=== PATIENT | female | born 1955 | race Caucasian/White ===

== ENCOUNTER 2016-09-28 23:33 | Inpatient (IN) | payer MEDICARE, OTHER ==
[~2016-09-28] VITALS: Ht 160 cm; Wt 64.9 kg
[2016-09-29] VITALS (11 sets, daily range): BP systolic 110–128; RESP 16–20; TEMP 97.4–98.7; Ht 160 cm; Wt 64.9 kg
[2016-09-29] MEDS ORDERED: NITROGLYCERIN 2% OINT 1 INCH PKT TOPICAL ONE (00:25)
[2016-09-29] MEDS ORDERED: ENOXAPARIN 60 MG/0.6 ML SYR SUBQ ONE (00:40)
[2016-09-29] MEDS ORDERED: ENOXAPARIN 80 MG/0.8 ML SYR SUBQ ONE (00:45)
[2016-09-29] MEDS ORDERED: SODIUM CHLORIDE 0.9% 1,000 ML IV SCH (02:40)
[2016-09-29] MEDS ORDERED: TRAMADOL 50 MG TAB PO PRN (02:40)
[2016-09-29] MEDS ORDERED: TEMAZEPAM 15 MG CAP PO PRN ×2 (02:40→13:45)
[2016-09-29] MEDS ORDERED: LORAZEPAM 0.5 MG TAB PO PRN (02:40)
[2016-09-29] MEDS ORDERED: ACETAMINOPHEN 325 MG TAB PO PRN ×2 (02:40→13:45)
[2016-09-29] MEDS ORDERED: NITROGLYCERIN SL 0.4 MG TAB SL PRN (02:40)
[2016-09-29] MEDS ORDERED: MORPHINE 2 MG/ML SYR IV PRN (02:40)
[2016-09-29] MEDS ORDERED: NITROGLYCERIN 50 MG/250 ML IV PRN (02:40)
[2016-09-29] MEDS ORDERED: SODIUM CHLORIDE 0.9% FLUSH BAG 500 ML IV PRN (02:40)
[2016-09-29] MEDS ORDERED: ONDANSETRON 4 MG VIAL IV PRN ×2 (02:40→16:10)
[2016-09-29] MEDS ORDERED: DOCUSATE SOD 100 MG CAP PO PRN (02:40)
[2016-09-29] MEDS ORDERED: SALINE FLUSH 10 ML FLUSH PRN ×2 (02:40→16:10)
[2016-09-29] MEDS ORDERED: ASPIRIN EC 81 MG TAB PO SCH (08:00)
[2016-09-29] MEDS: SALINE FLUSH 10 ML FLUSH SCH ×2 (08:57→20:07)
[2016-09-29] MEDS ORDERED: LEVOTHYROXINE 0.025 MG TAB PO SCH (10:15)
[2016-09-29] MEDS ORDERED: METOPROLOL XL 25 MG TAB PO SCH (10:15)
[2016-09-29] MEDS ORDERED: MISSING DOSE XX ONE (10:55)
[2016-09-29] MEDS ORDERED: Atorvastatin 40 MG TAB PO STA (13:44)
[2016-09-29] MEDS ORDERED: TEMAZEPAM 7.5 MG CAP PO PRN (13:45)
[2016-09-29] MEDS ORDERED: DIPHENHYDRAMINE 25 MG CAP PO ONE (13:45)
[2016-09-29] MEDS ORDERED: DEXTROSE 5% SALINE 0.45% 1,000 ML IV ONE (13:45)
[2016-09-29] MEDS ORDERED: KCL 20 MEQ/15 ML UDC PO STA (13:50)
[2016-09-29] MEDS ORDERED: DEXTROSE 5% SALINE 0.45% 1,000 ML IV SCH (16:10)
[2016-09-29] MEDS ORDERED: MORPHINE 2 MG/ML SYR IV ONE (16:10)
[2016-09-29] MEDS ORDERED: ATROPINE 1 MG/10 ML SYRINGE IV PRN (16:10)
[2016-09-29] MEDS ORDERED: LIDOCAINE 2% 20 ML SUBQ ONE (16:10)
[2016-09-29] MEDS ORDERED: MIDAZOLAM 2 MG/2 ML INJ ONE (17:21)
[2016-09-29] MEDS ORDERED: LIDOCAINE/EPI 2% MPF 20 ML ONE (17:21)
[2016-09-29] MEDS ORDERED: ONDANSETRON 4 MG VIAL ONE (17:21)
[2016-09-29] MEDS ORDERED: SALINE FLUSH 10 ML FLUSH SCH (20:00)
[2016-09-30] MEDS ORDERED: SODIUM CHLORIDE 0.9% FLUSH BAG 500 ML IV SCH (06:00)
[2016-09-30] MEDS ORDERED: PANTOPRAZOLE 40 MG TAB PO SCH (07:00)
== END 2016-09-29 20:55 | disposition home or self-care (01) | DRG 287 ==
LOC: ENRESERV → ENRESERVTM → ENRESERVDT → ER 23:33 → ENPENDDIS 09-29 01:41 → EMR 09-29 01:41 → 5THE 09-29 02:45
PROVIDERS: ADMIT Internal Medicine Cardiovascular Disease; ATTEND Internal Medicine Cardiovascular Disease
PROC: 4A023N7 Measurement of Cardiac Sampling and Pressure, Left Heart, Percutaneous Approach (ICD-10-PCS; principal; 2016-09-29)
PROC: B2111ZZ Fluoroscopy of Multiple Coronary Arteries using Low Osmolar Contrast (ICD-10-PCS; 2016-09-29)
PROC: B2151ZZ Fluoroscopy of Left Heart using Low Osmolar Contrast (ICD-10-PCS; 2016-09-29)
DX: I20.0 Unstable angina (principal); I10 Essential (primary) hypertension; E03.9 Hypothyroidism, unspecified; K21.9 Gastro-esophageal reflux disease without esophagitis; Z82.49 Family history of ischemic heart disease and other diseases of the circulatory system
CPT/HCPCS: 36415; 71010; 80053; 82550; 82553; 83735; 84439; 84443; 84484; 85025; 85379; 85610; 85730; 93005; 93458; 94799; 96372